=== PATIENT | male | born 1955 | race Caucasian/White ===

== ENCOUNTER 2016-11-22 19:57 | Emergency (ER) | payer OTHER ==
--- NOTE | ~2016-11-22 | CR173 ---
[facility]. [facility] Service of [facility] RADIOLOGY TEXT RESULTS PATIENT: CLARA DENNIS LOCATION: SED : 55 UNIT #: [id number] AGE: [address]: Naveed Staley MD SEX: M ORDER DR: [id number] [place] [id number] E MR#: [id number] Acc #: [id number] NAME: CLARA DENNIS : 1955 SEX: M STUDY DATE/TIME: 11/22/2016 19:57 UNIT: SED ROOM: STUDY DESCRIPTION: CR Knee 3 Views Rt Attending Physician: Naveed Staley M.D. Ordering Physician: Naveed Staley M.D. Primary Care Physician: Sonya Krueger A.P.R.N. MEDICAL IMAGING REPORT This report is preliminary unless electronic signature is present. EXAM Knee 3 views right, 11/22/2016 HISTORY Chronic pain and swelling x2 weeks. May have had a bite on the lateral side. History of prostate cancer. Pain everywhere around the knee. FINDINGS 3 views of the right knee are reviewed. There is a moderate sized suprapatellar joint effusion. In the absence of trauma this could be related to arthritis but please exclude clinical concern for infection. Please correlate for clinical concern for CPPD arthritis. Otherwise there is mild tricompartmental joint space narrowing, minimal osteophyte formation. Suspect mild demineralization. There is no acute fracture. IMPRESSION 1. There is a moderate joint effusion and the patient does not provide a trauma history. Please correlate for clinical evidence of arthritis and please correlate specifically for any clinical concern for infection. No acute fracture. 2. There is chondrocalcinosis present and please correlate for any clinical evidence of CPPD arthritis. The bones are probably mildly demineralized and there is mild tricompartmental joint space narrowing. Dictated by... Alina Casillas M.D. THIS IS AN ELECTRONICALLY VERIFIED REPORT Alina Casillas M.D. at 11/24/2016 7:46 AM [facility] A Service of [facility] RADIOLOGY TEXT RESULTS PATIENT: CLARA DENNIS LOCATION: SED : 55 UNIT #: [id number] AGE: [address]: Naveed Staley MD SEX: M ORDER DR: JOHNNY/suma TD: 11/24/2016 03:06 JOB #: [id number] MEDICAL IMAGING REPORT
[~2016-11-22 19:57] MED LIST: ARTHRITIS MED; ATARAX PO; BACTRIM DS TABL1 TA1 PO; BENADRYL25 MG PO; KEFLEX500 M1 PO; LORTAB 7.5-5001 TAB PO; NAPROXEN500 M1 PO; NO MEDICATIONS; PREDNISONE PO; VOLTAREN75 MG PO
== END 2016-11-22 21:21 | disposition home or self-care (01) ==
LOC: SED 19:57
DX: M25.461 Effusion, right knee (principal); F17.200 Nicotine dependence, unspecified, uncomplicated; Z88.1 Allergy status to other antibiotic agents
CPT/HCPCS: 20610; 73562; 99283

== ENCOUNTER 2016-11-26 13:57 | Emergency (ER) | payer OTHER | END 2016-11-26 14:40 | disposition home or self-care (01) | LOC: SED 13:57 | DX: M25.461 Effusion, right knee (principal); C61 Malignant neoplasm of prostate; F17.210 Nicotine dependence, cigarettes, uncomplicated; Z88.1 Allergy status to other antibiotic agents; Z88.8 Allergy status to other drugs, medicaments and biological substances | CPT/HCPCS: 96372; 99283; J1885 ==